=== PATIENT | male | born 1985 | race Caucasian/White ===

== ENCOUNTER → 2018-12-31 | Outpatient (CLI) | payer OTHER ==
--- NOTE | 2018-12-31 14:43 | RAD ---
EXAM: WRIST 2V LEFT. HISTORY: Osteoarthritis, fracture follow-up. COMPARISON: None. FINDINGS: A distal radial fracture is fixed by a volar plate and multiple screws. It appears healed or almost completely healed in expected alignment. Mild soft tissue swelling persists. Triscaphe osteoarthritis is mild. IMPRESSION: 1. Healed internally fixed distal radial fracture in expected alignment. Electronically signed by: Madison Ayoub MD (12/31/2018 2:40 PM) [facility]
== END ==
LOC: RAD 09:35
DX: M19.032 Primary osteoarthritis, left wrist (principal)
CPT/HCPCS: 73100